=== PATIENT | female | born 2000 | race Caucasian/White ===

== ENCOUNTER 2019-12-19 10:05 | Day surgery (SDC) | payer BC ==
[2019-12-17 15:02] VITALS: BMI 25.7
[2019-12-19 12:20] VITALS: BP 118/78; PULSE 77; TEMP 98.6
--- NOTE | 2019-12-23 16:05 | PATH ---
Surgical Pathology Report Patient Name: KARLIE CAMPOS [facility]. Rec. #: [id number] /Age/Gender: 2000 (Age: 19) / F Account: [id number] Location: [facility] AMBULATORY Taken: 12/19/2019 Received: 12/19/2019 Reported: 12/23/2019 Physicians: Kevon Leary M.D. Specimen(s) Received A: TERMINAL ILEUM B: RECTUM Clinical History Rectal bleed Postoperative diagnosis: Rule out Crohn's, rule out colitis Final Diagnosis A. TERMINAL ILEUM, BIOPSY: SMALL INTESTINAL MUCOSA WITH NO SIGNIFICANT PATHOLOGIC CHANGE. THE ARCHITECTURE OF THE VILLI APPEARS NORMAL. NO HISTOLOGIC EVIDENCE OF INTRAEPITHELIAL LYMPHOCYTOSIS OR ACTIVE INFLAMMATION. B. RECTUM, BIOPSY: COLONIC MUCOSA WITH FOCAL HEMORRHAGE AND REACTIVE LYMPHOID AGGREGATE IN THE LAMINA PROPRIA. NO EVIDENCE OF ACTIVE COLITIS. Electronically Signed Luis Gongora M.D. Gross Description A. Received in formalin, labeled "biopsy terminal ileum" is a ruiz, irregular portion of soft tissue measuring 0.7 cm. in greatest dimension. The specimen is submitted in toto in one cassette. B. Received in formalin, labeled "biopsy rectum" is a ruiz, irregular portion of soft tissue measuring 0.3 cm. in greatest dimension. The specimen is submitted in toto in one cassette. 12/22/2019 [facility]/22/2019
== END 2019-12-19 12:20 | disposition home or self-care (01) ==
LOC: FASU 10:05
PROVIDERS: ATTEND Internal Medicine Gastroenterology
PROC: 0DBP8ZX Excision of Rectum, Via Natural or Artificial Opening Endoscopic, Diagnostic (ICD-10-PCS; 2019-12-19)
PROC: 0DBB8ZX Excision of Ileum, Via Natural or Artificial Opening Endoscopic, Diagnostic (ICD-10-PCS; 2019-12-19)
PROC: 0DBH8ZX Excision of Cecum, Via Natural or Artificial Opening Endoscopic, Diagnostic (ICD-10-PCS; principal; 2019-12-19 11:18)
DX: K92.1 Melena (principal); K62.89 Other specified diseases of anus and rectum; R19.4 Change in bowel habit; K64.8 Other hemorrhoids
CPT/HCPCS: 84703; 88305-TC